=== PATIENT | female | born 1940 | race Caucasian/White ===

== ENCOUNTER → 2017-12-01 14:37 | Outpatient (CLI) | payer MEDICARE, SELFPAY | PROVIDERS: Family Provider Nurse Practitioner Family; PCP Nurse Practitioner Family; Visit Provider Urology | DX: N39.0 Urinary tract infection, site not specified (principal) | CPT/HCPCS: 76770 ==

== ENCOUNTER → 2020-09-02 08:21 | Outpatient (CLI) | payer MEDICARE, SELFPAY ==
[2020-09-02] VITALS (7 sets, daily range): BP systolic 109–138; BP diastolic 55–76; PULSE 84–109; RESP 16; TEMP 36.8–37; O2SAT 96–100; BMI 23.8
[2020-09-02] MEDS: Acetaminophen 325 MG Tablet 650 MG PO (08:43)
[2020-09-02] MEDS: 0.9% NaCl Peripheral Flush Adult/Peds IV ×2 (08:43→13:49)
== END ==
PROVIDERS: PCP Nurse Practitioner Family; Referring Provider Internal Medicine Hematology & Oncology; Visit Provider Internal Medicine Hematology & Oncology
DX: D64.9 Anemia, unspecified (principal); C21.0 Malignant neoplasm of anus, unspecified
CPT/HCPCS: 36430; 86850; 86900; 86901; 86920; 86922; J7040; P9016; A4216